=== PATIENT | female | born 1995 | race African-American/Black ===

== ENCOUNTER 2017-01-25 13:27 | Emergency (ER) | payer OTHER ==
[~2017-01-25] VITALS: Ht 152.4 cm; Wt 49.9 kg
[2017-01-25 15:58] VITALS: BP 102/70
== END 2017-01-25 16:02 | disposition home or self-care (01) ==
LOC: ER 13:27
DX: G43.909 Migraine, unspecified, not intractable, without status migrainosus (principal); R19.7 Diarrhea, unspecified; R11.2 Nausea with vomiting, unspecified; F10.99 Alcohol use, unspecified with unspecified alcohol-induced disorder

== ENCOUNTER 2018-04-20 14:10 | Emergency (ER) | payer BC ==
[~2018-04-20] VITALS: Ht 162.6 cm; Wt 54.4 kg
[2018-04-20] MEDS ORDERED: PROMS25 WY RECTAL (18:18)
[2018-04-20] MEDS ORDERED: MAPAP480 MG/15 PO (18:18)
[2018-04-20 18:44] VITALS: BP 100/48
== END 2018-04-20 18:52 | disposition home or self-care (01) ==
LOC: ER 14:10
DX: O99.351 Diseases of the nervous system complicating pregnancy, first trimester (principal); G43.909 Migraine, unspecified, not intractable, without status migrainosus; O21.8 Other vomiting complicating pregnancy; Z3A.13 13 weeks gestation of pregnancy